=== PATIENT | male | born 1980 | race Hispanic/Latino ===

== ENCOUNTER 2017-05-10 12:33 | Emergency (ER) | payer OTHER ==
[2017-05-10 12:43] VITALS: RESP 18
[2017-05-10] MEDS ORDERED: Sodium Chloride 0.9% 1,000 ML IV SCH (13:00)
--- NOTE | 2017-05-10 13:10 | ED PDOC ---
Syncope/Near Syncope/Dizziness Chief Complaint (Nursing): Dizziness/Lightheaded Chief Complaint (Provider): Dizziness History Per: Patient Onset/Duration Of Symptoms: Hrs (1.5) Current Symptoms Are (Timing): Better Additional Complaint(s): 37 yo M w/o PMHx presents to ER via EMS for acute onset of dizziness. 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 He began feeling much better after spending a minute or two in the air conditioned ambulance on the way to [facility]. He denies any headstrike, LOC, blurry vision, aura, floaters/spots, visual field reduction, recent falls, recent trauma, fevers/chills, nausea, vomiting, diarrhea, constipation, or limb numbness/heaviness. He states having reduced consumption of water and fluids over the previous few days despite the increased temperature/humidity outside. Additionally, his last meal was dinner yesterday, 16 hours ago. He denies any chronic medical problems, taking any medication, any recent etoh intake, or using any illicit drugs. Additioanlly, he denies SOB, dyspnea, cough, abdominal pain, dysuria, or myalgias. Past Medical History Reviewed: Historical Data, Nursing Documentation, Vital Signs Vital Signs: Last Vital Signs Temp 99 F 05/10/17 12:40 Pulse 78 05/10/17 12:40 Resp 18 05/10/17 12:40 BP 151/86 H 05/10/17 12:40 Pulse Ox 99 05/10/17 12:40 - Medical History PMH: No Chronic Diseases Denies: Chronic Kidney Disease - Surgical History Surgical History: No Surg Hx - Family History Family History: States: Diabetes - Allergies Allergies/Adverse Reactions: Allergies Allergy/AdvReac Type Severity Reaction Status Date / Time No Known Allergies Allergy Verified 05/10/17 12:44 Review of Systems ROS Statement: Except As Marked, All Systems Reviewed And Found Negative (see HPI) Physical Exam - Reviewed Nursing Documentation Reviewed: Yes Vital Signs Reviewed: Yes - Physical Exam Appears: Positive for: Non-toxic, No Acute Distress Head Exam: Positive for: ATRAUMATIC, NORMAL INSPECTION, NORMOCEPHALIC Skin: Positive for: Normal Color, Warm, Dry Eye Exam: Positive for: Normal appearance, EOMI, PERRL Neck: Positive for: Normal, Painless ROM Cardiovascular/Chest: Positive for: Regular Rate, Rhythm. Negative for: Edema Respiratory: Positive for: Normal Breath Sounds. Negative for: Wheezing, Respiratory Distress Gastrointestinal/Abdominal: Positive for: Normal Exam, Soft. Negative for: Tenderness, Distended, Guarding Back: Positive for: Normal Inspection. Negative for: L CVA Tenderness, R CVA Tenderness, Vertebral Tenderness Extremity: Negative for: Pedal Edema, Calf Tenderness Neurologic/Psych: Positive for: Alert, it specialist II-XII, Oriented - ECG O2 Sat by Pulse Oximetry: 99 - Progress ED Course And Treament: 37 yo M w/o PMHx presents to ER via EMS for an acute onset of dizziness/ lightheadedness -CBC -BMP -UA -EKG -Troponin x1 -NS 1L Bolus x1 Update 1400: -Pt feeling much improved -EKG wnl -Awaiting results of ER labs Condition: Re-examined, Improved Disposition - Clinical Impression Clinical Impression: Dizziness - Disposition Disposition: Transfer of Care Disposition Time: 14:50 Condition: STABLE
[2017-05-10 13:54] LABS: HEMATOCRIT 42.9 % (35.0-51.0); MEAN CELL VOLUME 87.6 fl (80.0-94.0); MEAN CORPUSCULAR HEMOGLOBIN 29.7 pg (27.0-31.0); MEAN CORPUSCULAR HGB CONC 33.9 g/dL (33.0-37.0); RED CELL DISTRIBUTION WIDTH 13.4 % (11.5-14.5); WHITE BLOOD COUNT 7.3 K/uL (4.8-10.8)
[2017-05-10 14:00] LABS: ALB/GLOB RATIO 1.5 (1.0-2.1); ALKALINE PHOSPHATASE 42 U/L (38-126); ALT/SGPT 41 U/L (21-72); AST/SGOT 39 U/L (17-59); BILIRUBIN,TOTAL 0.9 mg/dl (0.2-1.3); BLOOD UREA NITROGEN 23 mg/dl (9-20); CALCIUM 9.4 mg/dL (8.4-10.2); CARBON DIOXIDE 27 mmol/L (22-30); CHLORIDE 105 mmol/L (98-107); GFR AFRICAN-AMERICAN > 60; GLUCOSE,RANDOM 83 mg/dL (75-110); POTASSIUM 3.9 MMOL/L (3.6-5.0); SODIUM 142 mmol/l (132-148); TOTAL PROTEIN 7.9 G/DL (6.3-8.2)
--- NOTE | 2017-05-10 14:51 | ED PDOC ---
- ECG O2 Sat by Pulse Oximetry: 99 - Progress Re-evaluation Time: 14:50 Condition: Improved Disposition - Clinical Impression Clinical Impression: Dizziness, Dehydration - POA Present On Arrival: None - Disposition Disposition: Routine/Home Disposition Time: 14:50 Condition: STABLE Instructions: Dehydration (ED)
[2017-05-10 15:21] VITALS: BP 127/62; PULSE 72; TEMP 98; O2SAT 100
== END 2017-05-10 15:15 | disposition home or self-care (01) ==
LOC: H.ER 12:33
DX: E86.0 Dehydration (principal); R42 Dizziness and giddiness